=== PATIENT | female | born 1985 | race Caucasian/White ===

== ENCOUNTER 2019-09-10 09:20 | Inpatient (IN) | payer BC ==
[2019-09-10] MEDS ORDERED: Sodium Chloride 0.9% 10 ML Syringe FLUSH PRN (09:57)
[2019-09-10] MEDS ORDERED: Ondansetron 4 MG/2 ML SDV IVPUSH PRN (09:57)
[2019-09-10] MEDS ORDERED: Lidocaine 1% 50 ML MDV INJECT ONE (09:57)
[2019-09-10] MEDS ORDERED: Nalbuphine 10 MG/ML Syringe IVPUSH PRN (09:57)
[2019-09-10] MEDS ORDERED: Oxytocin/Lactated Ringers 10 UNIT/1,000 ML BAG IV SCH (10:00)
[2019-09-10] MEDS: Lactated Ringers 1,000 ML IV SCH ×3 (15:01→16:27)
[2019-09-10] MEDS ORDERED: fentaNYL 100 MCG/2 ML SDV EPIDUR PRN (15:11)
[2019-09-10] MEDS ORDERED: ePHEDrine 50 MG/ML SDV IVPUSH PRN (15:11)
[2019-09-10] MEDS ORDERED: diphenhydrAMINE 50 MG/ML SDV IVPUSH PRN (15:11)
[2019-09-10] MEDS ORDERED: Bupivacaine/fentaNYL/NS 100 ML Bag EPIDUR PRN (15:11)
--- NOTE | 2019-09-10 15:50 | PCM.PREANE ---
Preanesthetic Assessment - Procedure Proposed Procedure: elizabeth - Anesthesia/Transfusion/Family Hx Anesthesia History: Prior Anesthesia Without Reaction Family History of Anesthesia Reaction: No Transfusion History: No Prior Transfusion(s) - Review of Systems General: No Symptoms Pulmonary: No Symptoms Cardiovascular: No Symptoms Gastrointestinal: No Symptoms Neurological: No Symptoms Other: Reports: None - Physical Assessment Vital Signs: Last Vital Signs Temp 98.4 F 09/10/19 09:45 Pulse 83 09/10/19 09:45 Resp 16 09/10/19 09:45 BP 123/79 09/10/19 09:45 Pulse Ox Height: 5 ft 11 in Weight: 111.584 kg ASA Class: 2 Mental Status: Alert & Oriented x3 Airway Class: Mallampati = 1 Dentition: Reports: Normal Dentition Thyro-Mental Finger Breadths: 3 Mouth Opening Finger Breadths: 3 ROM/Head Extension: Full Lungs: Clear to Auscultation, Normal Respiratory Effort Cardiovascular: Regular Rate, Regular Rhythm, No Murmurs - Lab Values: Laboratory Last Values WBC 16.20 K/mm3 (3.98-10.04) H 09/10/19 10:57 RBC 4.44 M/mm3 (3.98-5.22) 09/10/19 10:57 Hgb 12.8 gm/dl (11.2-15.7) 09/10/19 10:57 Hct 39.4 % (34.1-44.9) 09/10/19 10:57 MCV 88.7 fl (79.4-94.8) 09/10/19 10:57 MCH 28.8 pg (25.6-32.2) 09/10/19 10:57 MCHC 32.5 g/dl (32.2-35.5) 09/10/19 10:57 RDW Std Deviation 42.2 fL (36.4-46.3) 09/10/19 10:57 Plt Count 272 K/mm3 (182-369) 09/10/19 10:57 MPV 9.6 fl (9.4-12.3) 09/10/19 10:57 Neut % (Auto) 79.2 % (34.0-71.1) H 09/10/19 10:57 Lymph % (Auto) 11.0 % (19.3-51.7) L 09/10/19 10:57 [place] % (Auto) 9.0 % (4.7-12.5) 09/10/19 10:57 Eos % (Auto) 0.1 (0.7-5.8) L 09/10/19 10:57 Baso % (Auto) 0.2 % (0.1-1.2) 09/10/19 10:57 Neut # (Auto) 12.82 K/mm3 (1.56-6.13) H 09/10/19 10:57 Lymph # (Auto) 1.79 K/mm3 (1.18-3.74) 09/10/19 10:57 [place] # (Auto) 1.46 K/mm3 (0.24-0.36) H 09/10/19 10:57 Eos # (Auto) 0.02 K/mm3 (0.04-0.36) L 09/10/19 10:57 Baso # (Auto) 0.03 K/mm3 (0.01-0.08) 09/10/19 10:57 RPR Non-reactive (NONREACTIVE) 09/10/19 10:57 COVID-19 (MICHELLE) Negative (NEGATIVE) 09/10/19 10:58 Blood Type A POSITIVE 09/10/19 10:57 Gel Antibody Screen Negative 09/10/19 10:57 - Allergies Allergies/Adverse Reactions: Allergies Allergy/AdvReac Type Severity Reaction Status Date / Time No Known Allergies Allergy Verified 10/18/16 19:58 CDT - Blood Blood Available: No - Acknowledgements Anesthesia Type Planned: Epidural Pt an Appropriate Candidate for the Planned Anesthesia: Yes Alternatives and Risks of Anesthesia Discussed w Pt/Guardian: Yes Pt/Guardian Understands and Agrees with Anesthesia Plan: Yes PreAnesthesia Questionnaire - Past Health History Medical/Surgical History: Denies Medical/Surgical History Cardiovascular History: Reports: None Respiratory History: Reports: None Gastrointestinal History: Reports: GERD (with preg) 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: , 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 - Past Surgical History HEENT Surgical History: Reports: Other (See Below) Other HEENT Surgeries/Procedures: wisdom tooth extraction Female Surgical History: Reports: Section - SUBSTANCE USE Smoking Status *Q: Never Smoker Tobacco Use Within Last Twelve Months: No Second Hand Smoke Exposure: No Days Per Week of Alcohol Use: 0 Recreational Drug Use History: No - CURRENT (IN HOUSE) MEDS Current Meds: Current Medications Diphenhydramine HCl (Benadryl) 25 mg IVPUSH Q6H PRN PRN Reason: pruritis Ephedrine Sulfate (Ephedrine Sulfate) 5 mg IVPUSH ASDIRECTED PRN PRN Reason: Hypotension Fentanyl (Sublimaze) 100 mcg EPIDUR Q3H PRN PRN Reason: Pain Last Admin: 09/10/19 15:32 Dose: 100 mcg Documented by: Fentanyl/Bupivacaine HCl (Fentanyl/Bupivacaine/Ns 2 Mcg-0.125% 100 Ml) 100 ml EPIDUR ASDIRECTED PRN PRN Reason: Pain Last Admin: 09/10/19 15:35 Dose: 100 ml Documented by: Oxytocin/Lactated Ringer's (Pitocin In Lr 10 Units/1,000 Ml) 10 unit in 1,000 mls @ 100 mls/hr IV .CONTINUOUS QI; Protocol Lactated Ringer's (Ringers, Lactated) 1,000 mls @ 100 mls/hr IV ASDIRECTED QI Last Admin: 09/10/19 15:36 Dose: 999 mls/hr Documented by: Nalbuphine HCl (Nubain) 10 mg IVPUSH Q2H PRN PRN Reason: Pain Ondansetron HCl (Zofran) 4 mg IVPUSH Q4H PRN PRN Reason: Nausea/Vomiting Sodium Chloride (Saline Flush) 10 ml FLUSH ASDIRECTED PRN PRN Reason: Keep Vein Open Discontinued Medications Lidocaine HCl (Xylocaine 1%) 50 ml INJECT ONETIME ONE Stop: 09/10/19 09:58
--- NOTE | 2019-09-10 17:35 | PCM.LDHP ---
L&D History of Present Illness - General Date of Service: 09/10/19 Admit Problem/Dx: Patient Status Order with Admit Dx/Problem 09/10/19 11:01 Admission Status [Patient Status] [ADT] Routine Admission Diagnosis/Problem Admission Diagnosis/Problem 09/10/19 17:24 Sammie is a 34-year-old 3 para 1011 white female who is admitted to labor and delivery at 40 and 37 weeks' gestational age with an BATSHEVA of 09/07/2019 with a diagnosis of spontaneous rupture of membranes and active labor. Source of Information: Patient History Limitations: Reports: No Limitations - History of Present Illness Introduction:: Sammie is a 34-year-old 3 para 1011 white female who is admitted to labor and delivery at 40 and 37 weeks' gestational age with an BATSHEVA of 09/07/2019 with a diagnosis of spontaneous rupture of membranes and active labor. She reports that approximately 2:00 this morning she had spontaneous rupture membranes. She has had continuous leakage of fluid since that time. She reports amniotic fluid to be clear. On evaluation in hospital she is noted to be 36+ centimeters, 90% effaced, -3 station, anterior, very soft, cephalic presentation with clear amniotic fluid. 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 Her BATSHEVA of 09/07/2019 is determined by an early ultrasound done on 01/29/2019 and supported by another ultrasound done later. Patient was seen early in the at approximately 8 weeks and on a regular basis during the course of the entire . Her previous obstetric history includes a female born on 10/20/2014 at 40 and 37 weeks' gestational age8 lbs. 6 oz. section done for failure to progress. This was done under spinal anesthesia in [place], [place]. She had spontaneous rupture membranes for over 48 hours at that time. Preceding that on 08/20/2009 she had a spontaneous miscarriage in the first trimester. During the course of her care she had no significant problems. She initiated her care in [place], [place] and finished it in [place], [place]. Her weight gain was from a pregravid weight of 177 to a final weight of 244 pounds for a 57 pound increase. Her vital signs are stable throughout the course and her fundal height growth was appropriate. Patient had her teethap immunization on 06/29/2019. She is rubella immune. She also has positive history of Veress cell vaccination. Laboratory testing and shows her blood to be a positive with a negative antibody screen. Her hemoglobin at first it was was 13.4 g/dL and platelets were 250,000. Pap smear was negative. Patient has positive Veress cell history. She is rubella immune. RPR is nonreactive. Urine culture was negative. Hepatitis B surface antigen and HIV assays were negative as were Chlamydia and gonorrhea tests. Second trimester labs showed hemoglobin 12.0 g/dL and platelets of 231,000. Her diabetic screening test was normal at 109. Her group B strep screen was negative. Drug screen on 01/29/2019 was negative. Allergies: None Medications: vitamins 1 daily Past medical history: 1. Miscarriage 1 2. [place] teeth extraction Past surgical history: 1. 1. Family history: Mother is alive and well on thyroid make medications. Father is alive and healthy. One brother alive and well. One sister alive and well but did have preeclampsia with the baby being delivered at 24 weeks. Maternal grandmother secondary to stomach cancer with metastases at age 94. Maternal grandfather secondary to stroke at in his 60s. Paternal grandfather secondary to lung cancer. Paternal grandmother secondary to a brain cancer in her 40s. Paternal grandfather secondary to esophageal cancer in his 60s. No bleeding, clotting, anesthesia or - related problems noted in the family. Social history: Patient is : is Rajendra. She does not use any significant loss of alcohol, drugs or tobacco. She works as at the [employer]. She is a college graduate. She works and lives in [place], [place]. Review of systems: In general patient has no complaints. Skin: Negative, specifically negative for excess hair growth significant amount of acne that is above what she normally has which is a small amount. Lungs: No infectious symptoms or shortness of breath Cardiovascular: No chest pain or exercise intolerance Breasts: No lumps, changes in size, pain, dimpling, discharge or axillary or supraclavicular concerns. Denies any discharge or other concerns GI: Negative : As per history of present illness and consistent with Musculoskeletal: Negative Neurological: Negative In general the patient is well-developed, well-nourished, pleasant female of stated age in no acute distress. Skin is warm dry without lesions. HEENT, neck and back within normal limits. Lungs are clear with good breath sounds in all lung cote. Cardiovascular exam shows regular and rhythm without murmurs. Breast exam is deferred having been done at time of first visit and found to be normal. Abdomen is gravid with fundal height consistent with term . Baby is in a vertex presentation. Genital digital exam as described above. Extremities and neurological exam are grossly within normal limits. 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 - Past Surgical History HEENT Surgical History: Reports: Other (See Below) Other HEENT Surgeries/Procedures: wisdom tooth extraction Female Surgical History: Reports: Section Social & Family History - Family History Family Medical History: Noncontributory OBGYN: Reports: Other (See Below) Other OBGYN Family History: Pre-eclampsia - Tobacco Use Smoking Status *Q: Never Smoker Second Hand Smoke Exposure: No - Caffeine Use Caffeine Use: Reports: None - Alcohol Use Days Per Week of Alcohol Use: 0 - Recreational Drug Use Recreational Drug Use: No H&P Review of Systems - Review of Systems: Review Of Systems: See Below L&D Exam - Exam Exam: See Below - Vital Signs Vital Signs: Last Vital Signs Temp 36.9 C 09/10/19 09:45 Pulse 83 09/10/19 09:45 Resp 16 09/10/19 09:45 BP 123/79 09/10/19 09:45 Pulse Ox Weight: 111.584 kg - Patient Data Lab Results Last 24 hrs: Laboratory Results - last 24 hr 09/10/19 09/10/19 09/10/19 Range/Units 10:57 10:57 10:57 WBC 16.20 H (3.98-10.04) K/mm3 RBC 4.44 (3.98-5.22) M/mm3 Hgb 12.8 (11.2-15.7) gm/dl Hct 39.4 (34.1-44.9) % MCV 88.7 (79.4-94.8) fl MCH 28.8 (25.6-32.2) pg MCHC 32.5 (32.2-35.5) g/dl RDW Std Deviation 42.2 (36.4-46.3) fL Plt Count 272 (182-369) K/mm3 MPV 9.6 (9.4-12.3) fl Neut % (Auto) 79.2 H (34.0-71.1) % Lymph % (Auto) 11.0 L (19.3-51.7) % [place] % (Auto) 9.0 (4.7-12.5) % Eos % (Auto) 0.1 L (0.7-5.8) Baso % (Auto) 0.2 (0.1-1.2) % Neut # (Auto) 12.82 H (1.56-6.13) K/mm3 Lymph # (Auto) 1.79 (1.18-3.74) K/mm3 [place] # (Auto) 1.46 H (0.24-0.36) K/mm3 Eos # (Auto) 0.02 L (0.04-0.36) K/mm3 Baso # (Auto) 0.03 (0.01-0.08) K/mm3 RPR Non-reactive (NONREACTIVE) COVID-19 (MICHELLE) (NEGATIVE) Blood Type A POSITIVE Gel Antibody Screen Negative 09/10/19 Range/Units 10:58 WBC (3.98-10.04) K/mm3 RBC (3.98-5.22) M/mm3 Hgb (11.2-15.7) gm/dl Hct (34.1-44.9) % MCV (79.4-94.8) fl MCH (25.6-32.2) pg MCHC (32.2-35.5) g/dl RDW Std Deviation (36.4-46.3) fL Plt Count (182-369) K/mm3 MPV (9.4-12.3) fl Neut % (Auto) (34.0-71.1) % Lymph % (Auto) (19.3-51.7) % [place] % (Auto) (4.7-12.5) % Eos % (Auto) (0.7-5.8) Baso % (Auto) (0.1-1.2) % Neut # (Auto) (1.56-6.13) K/mm3 Lymph # (Auto) (1.18-3.74) K/mm3 [place] # (Auto) (0.24-0.36) K/mm3 Eos # (Auto) (0.04-0.36) K/mm3 Baso # (Auto) (0.01-0.08) K/mm3 RPR (NONREACTIVE) COVID-19 (MICHELLE) Negative (NEGATIVE) Blood Type Gel Antibody Screen Result Diagrams: 09/10/19 10:57 Problem List Initiated/Reviewed/Updated: Yes Orders Last 24hrs: Active Orders 24 hr Category Date Time Status Admission Status [Patient Status] [ADT] Routine ADT 09/10/19 11:01 Active Activity as Tolerated [RC] PFP Care 09/10/19 09:57 Active Communication Order [RC] ASDIRECTED Care 09/10/19 09:57 Active Non Stress Test [RC] PER UNIT ROUTINE Care 09/10/19 09:57 Active Notify Provider [RC] ASDIRECTED Care 09/10/19 15:11 Active Notify Provider [RC] PFP Care 09/10/19 09:57 Active Notify Provider [RC] PRN Care 09/10/19 09:57 Active Peripheral IV Care [RC] . DIRECTED Care 09/10/19 10:01 Active Pump Management, Intrathecal [RC] ASDIRECTED Care 09/10/19 10:02 Active Urinary Catheter Assessment [RC] ASDIRECTED Care 09/10/19 09:57 Active Vital Signs [RC] PER UNIT ROUTINE Care 09/10/19 09:57 Active Regular Diet [DIET] Diet 09/10/19 Breakfast Active Bupivacaine/fentaNYL/NS [fentaNYL/Bupivacaine/NS 2 MCG- Med 09/10/19 15:11 Active 0.125% 100 ML] 100 ml EPIDUR ASDIRECTED PRN Lactated Ringers [Ringers, Lactated] 1,000 ml Med 09/10/19 10:00 Active IV ASDIRECTED Nalbuphine [Nubain] Med 09/10/19 09:57 Active 10 mg IVPUSH Q2H PRN Ondansetron [Zofran] Med 09/10/19 09:57 Active 4 mg IVPUSH Q4H PRN Oxytocin/Lactated Ringers [Pitocin in LR 10 Units/1,000 Med 09/10/19 10:00 Active ML] 10 unit in 1,000 ml IV .CONTINUOUS Sodium Chloride 0.9% [Saline Flush] Med 09/10/19 09:57 Active 10 ml FLUSH ASDIRECTED PRN diphenhydrAMINE [Benadryl] Med 09/10/19 15:11 Active 25 mg IVPUSH Q6H PRN ePHEDrine [ePHEDrine sulfate] Med 09/10/19 15:11 Active 5 mg IVPUSH ASDIRECTED PRN fentaNYL [Sublimaze] Med 09/10/19 15:11 Active 100 mcg EPIDUR Q3H PRN Electronic Heart Tones Ext w TOCO [WOMSER] Oth 09/10/19 09:57 Ordered Routine Electronic Heart Tones Internal [WOMSER] Per Unit Oth 09/10/19 09:57 Ordered Routine Peripheral IV Insertion Adult [OM.PC] Routine Oth 09/10/19 09:57 Ordered Resuscitation Status Routine Resus Stat 09/10/19 09:57 Ordered Medication Orders Diphenhydramine HCl (Benadryl) 25 mg IVPUSH Q6H PRN PRN Reason: pruritis Ephedrine Sulfate (Ephedrine Sulfate) 5 mg IVPUSH ASDIRECTED PRN PRN Reason: Hypotension Fentanyl (Sublimaze) 100 mcg EPIDUR Q3H PRN PRN Reason: Pain Last Admin: 09/10/19 15:32 Dose: 100 mcg Documented by: MARIZA Fentanyl/Bupivacaine HCl (Fentanyl/Bupivacaine/Ns 2 Mcg-0.125% 100 Ml) 100 ml EPIDUR ASDIRECTED PRN PRN Reason: Pain Last Admin: 09/10/19 15:35 Dose: 100 ml Documented by: MARIZA Oxytocin/Lactated Ringer's (Pitocin In Lr 10 Units/1,000 Ml) 10 unit in 1,000 mls @ 100 mls/hr IV .CONTINUOUS QI; Protocol Lactated Ringer's (Ringers, Lactated) 1,000 mls @ 100 mls/hr IV ASDIRECTED QI Last Infusion: 09/10/19 16:27 Dose: 100 mls/hr Documented by: Admin: 09/10/19 16:27 Dose: 999 mls/hr Documented by: Infusion: 09/10/19 16:27 Dose: 999 mls/hr Documented by: Admin: 09/10/19 15:36 Dose: 999 mls/hr Documented by: Infusion: 09/10/19 15:36 Dose: 999 mls/hr Documented by: Infusion: 09/10/19 15:01 Dose: 999 mls/hr Documented by: Admin: 09/10/19 15:01 Dose: 100 mls/hr Documented by: MARIZA Nalbuphine HCl (Nubain) 10 mg IVPUSH Q2H PRN PRN Reason: Pain Ondansetron HCl (Zofran) 4 mg IVPUSH Q4H PRN PRN Reason: Nausea/Vomiting Sodium Chloride (Saline Flush) 10 ml FLUSH ASDIRECTED PRN PRN Reason: Keep Vein Open Assessment/Plan Comment:: 1. 40-3/7 week intrauterine patency, SROM with early labor. Patient has had a previous section for failure to progress. She desires trial labor after section for an attempt at vaginal after section. The procedure, risks, benefits, preparatory intervention prior to delivery discussed with patient and implemented. This will include preop labs for , consent for and , near continuous heart rate monitoring, epidural when necessary, alerting the anesthesia and surgical staff as to the presence of a patient in L&D. 2. Group B strep screen negative 3. Patient plans to breast-feed. 4. Patient desires natural labor 5. Tdap is up-to-date. She is rubella immune. 6. Desires minimal intervention in labor and delivery. Plan: 1. Anticipate normal spontaneous vaginal delivery 2. Pain control per patient desire 3. Patient plans to breast-feed. I support fully this decision. 4. covid testing, CBC and RPR upon admission 5. Routine labor care as described above.
--- NOTE | 2019-09-10 18:06 | PCM.SN.2 ---
- Free Text/Narrative Note: Sammie is a 34-year-old 3 para 1011 white female who is admitted to labor and delivery at 40 and 37 weeks' gestational age with an BATSHEVA of 09/07/2019 with a diagnosis of spontaneous rupture of membranes and active labor. Patient went spontaneously into an active labor and progressively dilated her cervix. She underwent labor analgesia with epidural. Vital signs were stable throughout labor course. At approximately 1720 hrs. she became completely dilated. She pushed for approximate 15-20 minutes and delivered a viable, romero, 3890 grams, ( 8 pounds, 9 ounces). In a direct occiput anterior position. The was placed on mom's abdomen. Nose and mouth bulb suction the baby dried. The baby had somewhat of an older and the baby had terminal meconium that occurred just as the baby was being delivered. Pitocin was increased 500 mL/h to facilitate increase in uterine tone and decrease likelihood of uterine bleeding. Cortisol pulsate for approximate 4 minutes at which time became flaccid. It was then clamped 2 and cut by the baby's father Rajendra. Cord blood was obtained. The umbilical cord had 3 vessels. Patient is known to have a mild second-degree laceration which was somewhat jagged and to the right. She also had a superficial abrasion on the medial aspect of the anterior labia minora. The perineal laceration was repaired in a routine fashion with 3-0 Monocryl suture. Labor epidural was used for perineal repair anesthesia. Patient tolerated this well. The placenta delivered in a Walker fashion. Good intact and complete and was discarded per patient desire. Patient plans to breast-feed. Estimated blood loss was 300 mL. Condition: Good.
[2019-09-10] MEDS ORDERED: Acetaminophen 325 MG Tab PO PRN (19:31)
[2019-09-10] MEDS ORDERED: Witch Hazel Medicated Pads 40/Jar TOP PRN (19:31)
[2019-09-10] MEDS ORDERED: Benzocaine/Menthol 20%-0.5% Spray 56 GM Canister TOP PRN (19:31)
[2019-09-10] MEDS: Ibuprofen 600 MG Tab PO PRN (19:43)
[2019-09-11] MEDS ORDERED: Bupivacaine 0.25% 10 ML SDV ONE
[2019-09-11] MEDS ORDERED: ePHEDrine Sulfate/0.9% NaCl/Pf 25 MG/5 ML SYRINGE IV ONE
[2019-09-11] MEDS: Ibuprofen 600 MG Tab PO PRN ×3 (03:34→18:54)
[2019-09-11] MEDS: Docusate Sodium 100 MG Cap PO PRN ×2 (03:36→18:54)
--- NOTE | 2019-09-11 13:19 | PCM48HPAN ---
Post Anesthesia Note - EVALUATION WITHIN 48HRS OF ANESTHETIC Vital Signs in Normal Range: Yes Patient Participated in Evaluation: Yes Respiratory Function Stable: Yes Airway Patent: Yes Cardiovascular Function Stable: Yes Hydration Status Stable: Yes Pain Control Satisfactory: Yes Nausea and Vomiting Control Satisfactory: Yes Mental Status Recovered: Yes Vital Signs: Last Vital Signs Temp 36.9 C 09/11/19 08:42 Pulse 94 09/11/19 08:42 Resp 14 09/11/19 08:42 BP 99/65 09/11/19 08:42 Pulse Ox 100 09/11/19 08:42
[2019-09-11 18:57] VITALS: BP 119/61; PULSE 93
--- NOTE | 2019-09-16 20:37 | PCM.DCSUM1 ---
Discharge Summary - Hospital Course Free Text/Narrative:: Sammie is a 34-year-old 3 para 1011 white female who is admitted to labor and delivery at 40 and 37 weeks' gestational age with an BATSHEVA of 09/07/2019 with a diagnosis of spontaneous rupture of membranes and active labor. Patient went spontaneously into an active labor and progressively dilated her cervix. She underwent labor analgesia with epidural. Vital signs were stable throughout labor course. At approximately 1720 hrs. she became completely dilated. She pushed for approximate 15-20 minutes and delivered a viable, romero, 3890 grams, ( 8 pounds, 9 ounces). In a direct occiput anterior position. The was placed on mom's abdomen. Nose and mouth bulb suction the baby dried. The baby had somewhat of an older and the baby had terminal meconium that occurred just as the baby was being delivered. Pitocin was increased 500 mL/h to facilitate increase in uterine tone and decrease likelihood of uterine bleeding. Cortisol pulsate for approximate 4 minutes at which time became flaccid. It was then clamped 2 and cut by the baby's father Rajendra. Cord blood was obtained. The umbilical cord had 3 vessels. Patient is known to have a mild second-degree laceration which was somewhat jagged and to the right. She also had a superficial abrasion on the medial aspect of the anterior labia minora. The perineal laceration was repaired in a routine fashion with 3-0 Monocryl suture. Labor epidural was used for perineal repair anesthesia. Patient tolerated this well. The placenta delivered in a Walker fashion. Good intact and complete and was discarded per patient desire. Patient plans to breast-feed. Estimated blood loss was 300 mL. patient has done well. She is nursing without problems, has minimal lochia and is voiding without this. Is desiring discharge home. Condition: Good. Diagnosis: Stroke: No - Discharge Data Discharge Date: 09/14/19 Discharge Disposition: Refer to Observation Condition: Good - Referral to Home Health Primary Care Physician: Kapil Goldstein MD - Patient Instructions Diet: Usual Diet as Tolerated, Regular Diet as Tolerated (Nursing diet with increased calories and calcium as directed) Activity: As Tolerated (No intercourse or tampons until bleeding resolves) Driving: May Drive Today Showering/Bathing: May Shower Showering/Bathing, Other: May take a bath Notify Provider of: Fever, Increased Pain, Swelling and Redness, Drainage, Nausea and/or Vomiting - Discharge Plan *PRESCRIPTION DRUG MONITORING PROGRAM REVIEWED*: No Patient Handouts: Care After Vaginal Delivery Referrals: Kapil Goldstein MD [Primary Care Provider] - (Follow up in 2-6 weeks) - Discharge Summary/Plan Comment DC Time >30 min.: No Discharge Summary/Plan Comment: Discharge instructions: 1. Discharge home 2. Diet, activity and follow-up discussed with patient. Recommend nursing diet with increased calories and calcium. 3. Precautions given concern increased pain, bleeding, temperature, signs/symptoms of DVT/PE. 4. Medications per home medication was printed, discussed with and given to the patient. 5. Return to clinic-Dr. Goldstein[facility] in 2 weeks. Diagnosis: Term -delivered Condition: Good - Patient Data Vitals - Most Recent: Last Vital Signs Temp 37.0 C 09/11/19 17:18 Pulse 93 09/11/19 17:18 Resp 14 09/11/19 17:18 BP 119/61 09/11/19 17:18 Pulse Ox 97 09/11/19 17:18 Weight - Most Recent: 111.584 kg Med Orders - Current: Current Medications Discontinued Medications Acetaminophen (Tylenol) 650 mg PO Q4H PRN PRN Reason: mild pain or fever Benzocaine/Menthol (Dermoplast Pain Relief [place]) 0 gm TOP ASDIRECTED PRN PRN Reason: Perineal Comfort Measure Last Admin: 09/10/19 19:43 Dose: 1 canister Documented by: Bupivacaine HCl (Sensorcaine-Mpf 0.25%) 10 ml .ROUTE .STK-MED ONE Stop: 09/11/19 00:01 Diphenhydramine HCl (Benadryl) 25 mg IVPUSH Q6H PRN PRN Reason: pruritis Docusate Sodium (Colace) 100 mg PO BID PRN PRN Reason: Constipation Last Admin: 09/11/19 18:54 Dose: 100 mg Documented by: Ephedrine Sulfate (Ephedrine Sulfate) 5 mg IVPUSH ASDIRECTED PRN PRN Reason: Hypotension Ephedrine Sulfate (Ephedrine 25 Mg/5 Ml Syringe) 25 mg IV .STK-MED ONE Stop: 09/11/19 00:01 Fentanyl (Sublimaze) 100 mcg EPIDUR Q3H PRN PRN Reason: Pain Last Admin: 09/10/19 15:32 Dose: 100 mcg Documented by: Fentanyl/Bupivacaine HCl (Fentanyl/Bupivacaine/Ns 2 Mcg-0.125% 100 Ml) 100 ml EPIDUR ASDIRECTED PRN PRN Reason: Pain Last Admin: 09/10/19 15:35 Dose: 100 ml Documented by: Oxytocin/Lactated Ringer's (Pitocin In Lr 10 Units/1,000 Ml) 10 unit in 1,000 mls @ 100 mls/hr IV .CONTINUOUS QI; Protocol Last Admin: 09/10/19 17:40 Dose: 100 mls/hr Documented by: Lactated Ringer's (Ringers, Lactated) 1,000 mls @ 100 mls/hr IV ASDIRECTED QI Last Infusion: 09/10/19 16:27 Dose: 100 mls/hr Documented by: Ibuprofen (Motrin) 600 mg PO Q4H PRN PRN Reason: Mild pain or fever Last Admin: 09/11/19 18:54 Dose: 600 mg Documented by: Lidocaine HCl (Xylocaine 1%) 50 ml INJECT ONETIME ONE Stop: 09/10/19 09:58 Nalbuphine HCl (Nubain) 10 mg IVPUSH Q2H PRN PRN Reason: Pain Ondansetron HCl (Zofran) 4 mg IVPUSH Q4H PRN PRN Reason: Nausea/Vomiting Sodium Chloride (Saline Flush) 10 ml FLUSH ASDIRECTED PRN PRN Reason: Keep Vein Open Efrain Ontiveros (Tucks) 1 pad TOP ASDIRECTED PRN PRN Reason: Perineal Comfort Measure Last Admin: 09/10/19 19:43 Dose: 1 tub Documented by:
== END 2019-09-11 19:15 | disposition home or self-care (01) | DRG 560 ==
LOC: JD.OB 09:20 → JD.OBCHECK 09:20 → JD.OB 11:01 → JD.OBCHECK 11:01 → OBSVTOIN 17:32 → JD.OB 17:33
PROVIDERS: ADMIT Obstetrics & Gynecology; ATTEND Obstetrics & Gynecology
PROC: 10E0XZZ Delivery of Products of Conception, External Approach (ICD-10-PCS; principal; 2019-09-10)
PROC: 0KQM0ZZ Repair Perineum Muscle, Open Approach (ICD-10-PCS; 2019-09-10)
PROC: 3E0R3BZ Introduction of Anesthetic Agent into Spinal Canal, Percutaneous Approach (ICD-10-PCS; 2019-09-10)
PROC: 00HU33Z Insertion of Infusion Device into Spinal Canal, Percutaneous Approach (ICD-10-PCS; 2019-09-10)
DX: O77.0 Labor and delivery complicated by meconium in amniotic fluid (principal); Z3A.40 40 weeks gestation of pregnancy; Z37.0 Single live birth; O70.1 Second degree perineal laceration during delivery; Z11.59 Encounter for screening for other viral diseases
CPT/HCPCS: 01967; 36415; 51701; 59025; 59409; 85025; 86592; 86850; 86900; 86901; A9270-GY; J0171; J2590; J3010; J3490; J7120; U0002